=== PATIENT | male | born 1990 | race Caucasian/White ===

== ENCOUNTER 2016-07-28 12:54 | Emergency (ER) | payer SELFPAY | END 2016-07-28 17:30 | disposition home or self-care (01) | LOC: ER1 12:54 | DX: S16.1XXA Strain of muscle, fascia and tendon at neck level, initial encounter (principal); S20.211A Contusion of right front wall of thorax, initial encounter; Z88.1 Allergy status to other antibiotic agents; G43.909 Migraine, unspecified, not intractable, without status migrainosus; Z79.899 Other long term (current) drug therapy; V43.52XA Car driver injured in collision with other type car in traffic accident, initial encounter; Y93.89 Activity, other specified; Y92.410 Unspecified street and highway as the place of occurrence of the external cause | CPT/HCPCS: 71020; 96372; 99284; J1885 ==

== ENCOUNTER 2020-06-28 18:21 | Emergency (ER) | payer SELFPAY | END 2020-06-28 21:12 | disposition home or self-care (01) | LOC: ER1 18:21 | DX: S01.01XA Laceration without foreign body of scalp, initial encounter (principal); S29.011A Strain of muscle and tendon of front wall of thorax, initial encounter; S46.911A Strain of unspecified muscle, fascia and tendon at shoulder and upper arm level, right arm, initial encounter; S70.12XA Contusion of left thigh, initial encounter; S10.91XA Abrasion of unspecified part of neck, initial encounter; S40.811A Abrasion of right upper arm, initial encounter; W01.0XXA Fall on same level from slipping, tripping and stumbling without subsequent striking against object, initial encounter; Z88.1 Allergy status to other antibiotic agents | CPT/HCPCS: 12002; 70450; 71260; 72125; 73030; 73090; 73552; 99284; Q9967 ==